=== PATIENT | male | born 1995 | race Hispanic/Latino ===

== ENCOUNTER 2022-06-16 06:14 | Emergency (ER) | payer SELFPAY ==
[2022-06-16] MEDS ORDERED: Lorazepam 2 MG/ML VIAL ONE (06:41)
[2022-06-16 06:51] LABS: #Basophils 0.1 thou/uL (0.0-0.2); #Eosinphils 0.2 thou/uL (0.0-0.7); #Lymphocytes 2.7 thou/uL (1.20-3.40); #Monocytes 0.8 thou/uL (0.11-0.59); %Basophils 0.4 % (0.0-1.0); %Eosinophils 1.3 % (0.0-10.0); %Lymphocytes 18.4 % (21.0-51.0); %Monocytes 5.5 % (0.0-10.0); %Neutrophils 74.4 % (42.0-75.0); Hemoglobin 14.9 g/dL (14.0-18.0); Mean Corpuscular HGB CONC 32.7 g/dL (32.0-36.0); Mean Corpuscular Hemoglobin 29.5 pg (27.0-31.0); Mean Corpuscular Volume 90.2 fl (78.0-98.0); Platelet Count 249 thou/uL (130-400); RBC Distribution Width 13.9 % (11.5-14.5); Red Blood Cell (RBC) Count 5.06 mill/uL (4.70-6.10); White Blood Cell (WBC) Count 14.7 thou/uL (4.8-10.8)
[2022-06-16 07:04] LABS: ALT (SGPT) 58 U/L (8-55); AST (SGOT) 31 U/L (5-34); Albumin 4.5 g/dL (3.5-5.0); Alkaline Phosphatase 129 U/L (40-110); Anion Gap 14 mmol/L (10-20); BUN (Urea Nitrogen) 11 mg/dL (8.9-20.6); Bilirubin, Total 1.3 mg/dL (0.2-1.2); CK (CPK) 718 U/L (30-200); Calc. Creatinine Clearance 0 mL/min (70-130); Calcium 9.2 mg/dL (7.8-10.44); Carbon Dioxide 24 mmol/L (22-29); Chloride 103 mmol/L (98-107); Estimated GFR 106; Globulin 2.7 g/dL (2.4-3.5); Glucose 128 mg/dL (70-105); Potassium 3.2 mmol/L (3.5-5.1); Protein, Total 7.2 g/dL (6.0-8.3); Sodium 138 mmol/L (136-145)
[2022-06-16 07:10] LABS: Acetaminophen Less than 10.0 mcg/mL (10.0-30.0); Alcohol Less than 10 mg/dL (Less than 10); Salicylate Less than 8.0 mg/dL (15.0-30.0)
[2022-06-16] MEDS ORDERED: Potassium Chloride 20 MEQ TAB ONE (07:44)
== END 2022-06-16 10:00 | disposition left against medical advice (07) ==
LOC: ERS 06:14
DX: R51.9 Headache, unspecified (principal); E87.6 Hypokalemia; F14.90 Cocaine use, unspecified, uncomplicated
CPT/HCPCS: 36415; 70450; 70496; 80053; 80307; 82550; 85025; 93005; 96374; J2060

== ENCOUNTER 2022-12-11 03:15 | Emergency (ER) | payer SELFPAY ==
[2022-12-11 03:40] LABS: #Basophils 0.1 thou/uL (0.0-0.2); #Eosinphils 0.1 thou/uL (0.0-0.7); #Lymphocytes 1.8 thou/uL (1.20-3.40); #Monocytes 0.7 thou/uL (0.11-0.59); #Neutrophils 14.1 thou/uL (1.40-6.50); %Basophils 0.5 % (0.0-1.0); %Eosinophils 0.3 % (0.0-10.0); %Lymphocytes 10.6 % (21.0-51.0); %Monocytes 4.2 % (0.0-10.0); %Neutrophils 84.4 % (42.0-75.0); Hemoglobin 14.5 g/dL (14.0-18.0); Mean Corpuscular HGB CONC 32.6 g/dL (32.0-36.0); Mean Corpuscular Hemoglobin 29.9 pg (27.0-31.0); Mean Corpuscular Volume 91.7 fl (78.0-98.0); Mean Platelet Volume 10.2 fL (7.4-10.4); Platelet Count 288 10x3/uL (130-400); RBC Distribution Width 13.4 % (11.5-14.5); Red Blood Cell (RBC) Count 4.86 mill/uL (4.70-6.10); White Blood Cell (WBC) Count 16.7 10x3/uL (4.8-10.8)
[2022-12-11] MEDS ORDERED: LORazepam 2 MG/ML SYR.(CARPUJECT) ONE (03:40)
[2022-12-11 04:02] LABS: Acetaminophen Less than 10.0 mcg/mL (10.0-30.0); Alcohol Less than 10 mg/dL (Less than 10); Salicylate Less than 8.0 mg/dL (15.0-30.0)
[2022-12-11 04:04] LABS: ALT (SGPT) 71 U/L (8-55); AST (SGOT) 36 U/L (5-34); Albumin 4.7 g/dL (3.5-5.0); Alkaline Phosphatase 156 U/L (40-110); Anion Gap 19 mmol/L (10-20); BUN (Urea Nitrogen) 13 mg/dL (8.9-20.6); Bilirubin, Total 0.4 mg/dL (0.2-1.2); Calc. Creatinine Clearance 0 mL/min (70-130); Calcium 9.2 mg/dL (7.8-10.44); Carbon Dioxide 18 mmol/L (22-29); Chloride 104 mmol/L (98-107); Estimated GFR 92; Globulin 2.7 g/dL (2.4-3.5); Glucose 153 mg/dL (70-105); Potassium 3.9 mmol/L (3.5-5.1); Protein, Total 7.4 g/dL (6.0-8.3); Sodium 137 mmol/L (136-145)
== END 2022-12-11 04:16 | disposition home or self-care (01) ==
LOC: ERS 03:15
DX: F14.20 Cocaine dependence, uncomplicated (principal); R00.0 Tachycardia, unspecified
CPT/HCPCS: 71045; 80053; 80307; 83880; 84484; 85025; 93005; 96374; J2060

== ENCOUNTER 2023-03-22 01:11 | Inpatient (IN) | payer SELFPAY ==
[2023-03-22 01:50] LABS: Hematocrit 51.1 % (42.0-52.0); Hemoglobin 17.1 g/dL (14.0-18.0); Mean Corpuscular HGB CONC 33.5 g/dL (32.0-36.0); Mean Corpuscular Hemoglobin 29.9 pg (27.0-31.0); Mean Corpuscular Volume 89.3 fl (78.0-98.0); Platelet Count 375 10x3/uL (130-400); RBC Distribution Width 13.6 % (11.5-14.5); Red Blood Cell (RBC) Count 5.72 mill/uL (4.70-6.10); White Blood Cell (WBC) Count 32.7 10x3/uL (4.8-10.8)
[2023-03-22 01:52] LABS: Delete Auto Diff?? YES; Manual Diff?? YES
[2023-03-22 02:06] LABS: Acetaminophen Less than 10 mcg/mL (10.0-30.0); Alcohol 11.3 mg/dL (Less than 10); Salicylate Less than 8.0 mg/dL (15.0-30.0)
[2023-03-22 02:07] LABS: ALT (SGPT) 40 U/L (8-55); AST (SGOT) 58 U/L (5-34); Albumin 5.2 g/dL (3.5-5.0); Alkaline Phosphatase 168 U/L (40-110); Anion Gap 26 mmol/L (10-20); BUN (Urea Nitrogen) 11 mg/dL (8.9-20.6); Bilirubin, Total 0.9 mg/dL (0.2-1.2); Calc. Creatinine Clearance 0 mL/min (70-130); Calcium 10.5 mg/dL (7.8-10.44); Carbon Dioxide 12 mmol/L (22-29); Chloride 108 mmol/L (98-107); Estimated GFR 45; Globulin 3.3 g/dL (2.4-3.5); Glucose 117 mg/dL (70-105); Potassium 3.5 mmol/L (3.5-5.1); Protein, Total 8.5 g/dL (6.0-8.3); Sodium 142 mmol/L (136-145)
[2023-03-22 02:15] LABS: Anisocytosis SLIGHT = 6-15 cells HPF (0-5); Band 22 % (5-11); CellaVision Operator ID LAB.CLH1; Eosinophils 1 % (0-10); Large Platelets 2.9 % (0-5); Lymphocytes 3 % (21-51); Monocytes 5 % (0-10); Neutrophil 66 % (42-75); Platelet Adequacy Comment Platelets Normal; Reactive Lymphocytes 3 % (0-10); Total Cell Count 103
[2023-03-22 02:17] LABS: Bacteria/HPF None Seen HPF (None Seen); Bilirubin Negative (Negative); Blood, Urine 3+ (Negative); CAUTI Indications for Culture Alt mental st,lethar; Clarity Turbid (Clear); Glucose, Urine (Dipstick) Normal (Negative); Ketone, Urine 10 mg/dL (Negative); Leukocyte Negative Leu/uL (Negative); Mucous/LPF Rare LPF (<2+); Nitrite Negative (Negative); Protein, Urine (Dipstick) 100 mg/dL (Neg-Trace); RBC/HPF 0-3 HPF (0-3); Specific Gravity, Urine 1.012 (1.002-1.036); Squamous Epithelial 0-3 HPF (0-3); Urobilinogen Normal mg/dL (Less than 2); WBC/HPF 0-3 HPF (0-3); pH, Urine 5.5 (5.0-9.0)
[2023-03-22 02:18] LABS: Sperm/HPF Rare HPF (None Seen); Urine Culture Reflex No No
[2023-03-22 02:20] LABS: Amphetamine Not Detected (NotDetected); Barbiturates Screen Not Detected (NotDetected); Benzodiazepine Screen Not Detected (NotDetected); Cocaine Metabolite Screen Detected (NotDetected); Methadone Not Detected (NotDetected); Methamphetamine Not Detected (NotDetected); Opiate Screen Not Detected (NotDetected); Oxycodone Screen Not Detected (NotDetected); Phencyclidine (PCP) Not Detected (NotDetected); THC/Cannabinoid Screen Detected (NotDetected); Tricyclic Screen Not Detected (NotDetected)
[2023-03-22 02:21] LABS: Actual Bicarbonate (HCO3v) 15.5 mEq/L (22-28); Base Excess -8.8 mEq/L (-2.0 to +3.0); Calcium, Ionized (venous) 1.13 mmol/L (1.16-1.32); Chloride (VBG) 108 mmol/L (98-106); Hematocrit-VBG 50 % (42.0-52.0); Potassium (VBG) 3.42 mmol/L (3.70-5.30); Sodium 139.4 mmol/L (133-146); pH (venous) 7.328 (7.32-7.43)
[2023-03-22] MEDS ORDERED: Ondansetron PF 4 MG/2 ML Vial ONE (02:51)
[2023-03-22] MEDS ORDERED: Aspirin 300 MG Suppository ONE (03:08)
[2023-03-22] MEDS ORDERED: Calcium Carbonate 500 MG ChewTAB PO PRN (03:22)
[2023-03-22] MEDS ORDERED: Ondansetron ODT 4 MG TAB PO PRN (03:22)
[2023-03-22] MEDS ORDERED: Acetaminophen 650 MG Suppository PR PRN (03:22)
[2023-03-22 03:31] LABS: ALT (SGPT) 33 U/L (8-55); AST (SGOT) 55 U/L (5-34); Acetaminophen Less than 10 mcg/mL (10.0-30.0); Albumin 4.4 g/dL (3.5-5.0); Alcohol Less than 10.0 mg/dL (Less than 10); Alkaline Phosphatase 140 U/L (40-110); Anion Gap 20 mmol/L (10-20); BUN (Urea Nitrogen) 12 mg/dL (8.9-20.6); Bilirubin, Total 0.8 mg/dL (0.2-1.2); Calc. Creatinine Clearance 0 mL/min (70-130); Carbon Dioxide 15 mmol/L (22-29); Chloride 110 mmol/L (98-107); Estimated GFR 52; Globulin 2.8 g/dL (2.4-3.5); Glucose 100 mg/dL (70-105); Potassium 3.5 mmol/L (3.5-5.1); Protein, Total 7.2 g/dL (6.0-8.3); Salicylate Less than 8.0 mg/dL (15.0-30.0); Sodium 141 mmol/L (136-145)
[2023-03-22 03:35] LABS: CKMB 4.4 ng/mL (0-6.6)
[2023-03-22 03:42] LABS: Hemoglobin A1c 5.1 % (4.0-6.0)
[2023-03-22 05:06] LABS: Troponin I 0.199 ng/mL (< 0.028)
[2023-03-22 05:20] VITALS: BMI 36.3
[2023-03-22] MEDS: Lactated Ringer's 1,000 ML IV SCH ×5 (05:50→22:33)
[2023-03-22 06:49] LABS: Lactic Acid 1.6 mmol/L (0.5-2.2)
[2023-03-22 07:16] LABS: Troponin I 0.214 ng/mL (< 0.028)
[2023-03-22] MEDS: Famotidine/PF 20 mg/2ml Vial SLOW IVP SCH ×2 (08:14→22:30)
[2023-03-22] MEDS: Ondansetron PF 4 MG/2 ML Vial IVP PRN ×2 (08:14→14:17)
[2023-03-22] MEDS: Famotidine 20 MG TAB PO SCH ×2 (09:30→22:29)
[2023-03-22] MEDS: Acetaminophen 325 MG TAB PO PRN ×2 (09:30→14:17)
[2023-03-22] MEDS ORDERED: Iopamidol-370 76% 500 ML MDV (1 ML CHARGE) ONE ×2 (10:45→10:50)
[2023-03-22] MEDS ORDERED: Sertraline 100 MG TAB PO SCH (13:53)
[2023-03-22] MEDS ORDERED: Thiamine HCl 200 MG/2 ML VIAL SLOW IVP SCH (14:00)
[2023-03-22] MEDS ORDERED: Sodium Chloride 0.9% 500 ML IVPB SCH (16:15)
[2023-03-22 20:55] LABS: Bilirubin Negative (Negative); Blood, Urine 2+ (Negative); CAUTI Indications for Culture Pelvic or flank pain; Clarity Clear (Clear); Glucose, Urine (Dipstick) Normal (Negative); Ketone, Urine Trace mg/dL (Negative); Leukocyte Negative Leu/uL (Negative); Nitrite Negative (Negative); Protein, Urine (Dipstick) Negative (Neg-Trace); Squamous Epithelial None Seen HPF (0-3); Urobilinogen Normal mg/dL (Less than 2); WBC/HPF 0-3 HPF (0-3); pH, Urine 5.5 (5.0-9.0)
[2023-03-22 21:02] LABS: Bacteria/HPF None Seen HPF (None Seen)
[2023-03-22 21:03] LABS: Urine Culture Reflex No No
[2023-03-23 04:48] LABS: #Basophils 0.1 thou/uL (0.0-0.2); #Eosinphils 0.1 thou/uL (0.0-0.7); #Monocytes 0.9 thou/uL (0.11-0.59); #Neutrophils 13.6 thou/uL (1.40-6.50); %Basophils 0.3 % (0.0-1.0); %Eosinophils 0.6 % (0.0-10.0); %Lymphocytes 7.3 % (21.0-51.0); %Monocytes 5.7 % (0.0-10.0); %Neutrophils 85.5 % (42.0-75.0); Mean Corpuscular Hemoglobin 30.2 pg (27.0-31.0); Mean Corpuscular Volume 91.4 fl (78.0-98.0); Mean Platelet Volume 12.5 fL (7.4-10.4); Platelet Count 190 10x3/uL (130-400); RBC Distribution Width 14.1 % (11.5-14.5); Red Blood Cell (RBC) Count 4.44 mill/uL (4.70-6.10); White Blood Cell (WBC) Count 15.9 10x3/uL (4.8-10.8)
[2023-03-23 05:14] LABS: Hematocrit 40.6 % (42.0-52.0); Hemoglobin 13.4 g/dL (14.0-18.0)
[2023-03-23 05:18] LABS: Anion Gap 17 mmol/L (10-20); BUN (Urea Nitrogen) 19 mg/dL (8.9-20.6); Calc. Creatinine Clearance 50 mL/min (70-130); Carbon Dioxide 18 mmol/L (22-29); Chloride 105 mmol/L (98-107); Estimated GFR 23; Glucose 99 mg/dL (70-105); Sodium 136 mmol/L (136-145)
[2023-03-23 05:23] LABS: CK (CPK) 7650 U/L (30-200)
[2023-03-23] MEDS: Sertraline 100 MG TAB PO SCH (09:11)
[2023-03-23] MEDS: Famotidine/PF 20 mg/2ml Vial SLOW IVP SCH (09:12)
[2023-03-23] MEDS: Thiamine HCl 200 MG/2 ML VIAL SLOW IVP SCH (09:12)
[2023-03-23] MEDS: Famotidine 20 MG TAB PO SCH (09:12)
[2023-03-23] MEDS ORDERED: Bacitracin 1 PK TOP SCH (10:40)
[2023-03-23] MEDS ORDERED: HYDROcodone/Acetaminophen 5/325 mg Tablet PO SCH (10:45)
[2023-03-23] MEDS: Lactated Ringer's 1,000 ML IV SCH ×4 (11:12→22:48)
[2023-03-23] MEDS: Bacitracin 1 PK TOP SCH ×2 (15:23→21:01)
[2023-03-23] MEDS: Sodium Bicarbonate Tab 325 MG TAB PO SCH (21:00)
[2023-03-23 21:46] LABS: Chloride 106 mmol/L (98-107); Potassium 3.7 mmol/L (3.5-5.1); Sodium 136 mmol/L (136-145)
[2023-03-23 21:47] LABS: Glucose 122 mg/dL (70-105)
[2023-03-23 21:49] LABS: Anion Gap 10 mmol/L (10-20); Carbon Dioxide 24 mmol/L (22-29)
[2023-03-23 21:51] LABS: Calc. Creatinine Clearance 54 mL/min (70-130); Estimated GFR 25
[2023-03-23 21:52] LABS: BUN (Urea Nitrogen) 18 mg/dL (8.9-20.6)
[2023-03-24] MEDS: Lactated Ringer's 1,000 ML IV SCH ×4 (02:36→16:18)
[2023-03-24 04:39] LABS: #Basophils 0.1 thou/uL (0.0-0.2); #Eosinphils 0.5 thou/uL (0.0-0.7); #Monocytes 0.8 thou/uL (0.11-0.59); #Neutrophils 10.8 thou/uL (1.40-6.50); %Basophils 0.4 % (0.0-1.0); %Eosinophils 3.5 % (0.0-10.0); %Lymphocytes 8.9 % (21.0-51.0); %Neutrophils 80.7 % (42.0-75.0); Hematocrit 40.5 % (42.0-52.0); Hemoglobin 13.1 g/dL (14.0-18.0); Mean Corpuscular HGB CONC 32.3 g/dL (32.0-36.0); Mean Corpuscular Hemoglobin 29.4 pg (27.0-31.0); Mean Platelet Volume 12.1 fL (7.4-10.4); Platelet Count 210 10x3/uL (130-400); RBC Distribution Width 14.2 % (11.5-14.5); Red Blood Cell (RBC) Count 4.45 mill/uL (4.70-6.10); White Blood Cell (WBC) Count 13.3 10x3/uL (4.8-10.8)
[2023-03-24 05:00] LABS: Anion Gap 13 mmol/L (10-20); BUN (Urea Nitrogen) 16 mg/dL (8.9-20.6); Calc. Creatinine Clearance 57 mL/min (70-130); Calcium 8.2 mg/dL (7.8-10.44); Carbon Dioxide 23 mmol/L (22-29); Chloride 107 mmol/L (98-107); Estimated GFR 27; Glucose 97 mg/dL (70-105); Potassium 4.1 mmol/L (3.5-5.1); Sodium 139 mmol/L (136-145)
[2023-03-24 05:22] LABS: CK (CPK) 4333 U/L (30-200)
[2023-03-24] MEDS ORDERED: Piperacillin/Tazobactam 3.375 GM in Sodium Chloride 0.9% 100 ML IVPB SCH ×2 (09:45→10:00)
[2023-03-24] MEDS: Sertraline 100 MG TAB PO SCH (10:01)
[2023-03-24] MEDS: Thiamine HCl 200 MG/2 ML VIAL SLOW IVP SCH (10:01)
[2023-03-24] MEDS: Sodium Bicarbonate Tab 325 MG TAB PO SCH ×3 (10:01→20:19)
[2023-03-24] MEDS: Famotidine 20 MG TAB PO SCH (10:01)
[2023-03-24] MEDS: Famotidine/PF 20 mg/2ml Vial SLOW IVP SCH (10:02)
[2023-03-24] MEDS: Bacitracin Zinc Ointment 30 gm TUBE TOP SCH ×3 (10:02→20:20)
[2023-03-24] MEDS: Bacitracin 1 PK TOP SCH (10:09)
[2023-03-24] MEDS: Sodium Chloride 0.9% 1,000 ML IV SCH ×2 (17:00→21:48)
[2023-03-24] MEDS: Piperacillin/Tazobactam 3.375 GM in Sodium Chloride 0.9% 100 ML IVPB SCH ×2 (17:00→21:48)
[2023-03-25] MEDS: Sodium Chloride 0.9% 1,000 ML IV SCH ×3 (01:46→09:26)
[2023-03-25 04:15] LABS: #Eosinphils 0.6 thou/uL (0.0-0.7); #Monocytes 0.6 thou/uL (0.11-0.59); #Neutrophils 6.9 thou/uL (1.40-6.50); %Basophils 0.2 % (0.0-1.0); %Lymphocytes 12.9 % (21.0-51.0); %Neutrophils 74.6 % (42.0-75.0); Hematocrit 42.6 % (42.0-52.0); Hemoglobin 13.6 g/dL (14.0-18.0); Mean Corpuscular HGB CONC 31.9 g/dL (32.0-36.0); Mean Corpuscular Hemoglobin 29.5 pg (27.0-31.0); Mean Corpuscular Volume 92.4 fl (78.0-98.0); Mean Platelet Volume 12.2 fL (7.4-10.4); Platelet Count 217 10x3/uL (130-400); RBC Distribution Width 14.4 % (11.5-14.5); Red Blood Cell (RBC) Count 4.61 mill/uL (4.70-6.10); White Blood Cell (WBC) Count 9.3 10x3/uL (4.8-10.8)
[2023-03-25 04:38] LABS: Anion Gap 13 mmol/L (10-20); BUN (Urea Nitrogen) 14 mg/dL (8.9-20.6); Calc. Creatinine Clearance 65 mL/min (70-130); Calcium 8.2 mg/dL (7.8-10.44); Carbon Dioxide 23 mmol/L (22-29); Chloride 112 mmol/L (98-107); Estimated GFR 31; Glucose 98 mg/dL (70-105); Potassium 3.8 mmol/L (3.5-5.1); Sodium 144 mmol/L (136-145)
[2023-03-25 04:50] LABS: CK (CPK) 6556 U/L (30-200)
[2023-03-25] MEDS: Piperacillin/Tazobactam 3.375 GM in Sodium Chloride 0.9% 100 ML IVPB SCH ×3 (05:43→21:12)
[2023-03-25] MEDS: Famotidine 20 MG TAB PO SCH ×2 (09:26→21:12)
[2023-03-25] MEDS: Sodium Bicarbonate Tab 325 MG TAB PO SCH ×3 (09:26→21:12)
[2023-03-25] MEDS: Thiamine HCl 200 MG/2 ML VIAL SLOW IVP SCH (09:26)
[2023-03-25] MEDS: Sertraline 100 MG TAB PO SCH (09:26)
[2023-03-25] MEDS: Bacitracin Zinc Ointment 30 gm TUBE TOP SCH ×3 (09:27→21:13)
[2023-03-25] MEDS: Famotidine/PF 20 mg/2ml Vial SLOW IVP SCH (09:27)
[2023-03-25] MEDS ORDERED: Lactated Ringer's 1,000 ML IV SCH (13:00)
[2023-03-25] MEDS: Lactated Ringer's 1,000 ML IV SCH ×3 (14:33→21:13)
[2023-03-25] MEDS ORDERED: Famotidine/PF 20 mg/2ml Vial SLOW IVP SCH (21:00)
[2023-03-25] MEDS: Acetaminophen 325 MG TAB PO PRN (21:37)
[2023-03-26] MEDS: Lactated Ringer's 1,000 ML IV SCH ×8 (00:48→23:06)
[2023-03-26 05:42] LABS: #Eosinphils 0.6 thou/uL (0.0-0.7); #Monocytes 0.6 thou/uL (0.11-0.59); #Neutrophils 6.5 thou/uL (1.40-6.50); %Basophils 0.2 % (0.0-1.0); %Eosinophils 6.7 % (0.0-10.0); %Lymphocytes 15.7 % (21.0-51.0); %Monocytes 6.5 % (0.0-10.0); %Neutrophils 70.5 % (42.0-75.0); Hematocrit 39.1 % (42.0-52.0); Hemoglobin 12.4 g/dL (14.0-18.0); Mean Corpuscular HGB CONC 31.7 g/dL (32.0-36.0); Mean Corpuscular Hemoglobin 29.9 pg (27.0-31.0); Mean Corpuscular Volume 94.2 fl (78.0-98.0); Mean Platelet Volume 12.5 fL (7.4-10.4); Platelet Count 218 10x3/uL (130-400); RBC Distribution Width 14.6 % (11.5-14.5); Red Blood Cell (RBC) Count 4.15 mill/uL (4.70-6.10); White Blood Cell (WBC) Count 9.2 10x3/uL (4.8-10.8)
[2023-03-26] MEDS: Piperacillin/Tazobactam 3.375 GM in Sodium Chloride 0.9% 100 ML IVPB SCH ×3 (06:06→23:06)
[2023-03-26 06:14] LABS: Anion Gap 12 mmol/L (10-20); BUN (Urea Nitrogen) 12 mg/dL (8.9-20.6); Calc. Creatinine Clearance 91 mL/min (70-130); Calcium 8.7 mg/dL (7.8-10.44); Carbon Dioxide 21 mmol/L (22-29); Chloride 112 mmol/L (98-107); Estimated GFR 47; Glucose 90 mg/dL (70-105); Potassium 4.1 mmol/L (3.5-5.1); Sodium 141 mmol/L (136-145)
[2023-03-26 06:26] LABS: CK (CPK) 5090 U/L (30-200)
[2023-03-26] MEDS: Sertraline 100 MG TAB PO SCH (08:54)
[2023-03-26] MEDS: Thiamine HCl 200 MG/2 ML VIAL SLOW IVP SCH (08:55)
[2023-03-26] MEDS: Famotidine 20 MG TAB PO SCH ×2 (08:55→21:27)
[2023-03-26] MEDS: Sodium Bicarbonate Tab 325 MG TAB PO SCH ×3 (08:55→21:27)
[2023-03-26] MEDS: Bacitracin Zinc Ointment 30 gm TUBE TOP SCH ×3 (08:57→21:28)
[2023-03-26] MEDS: Ondansetron PF 4 MG/2 ML Vial IVP PRN (21:26)
[2023-03-26] MEDS: Acetaminophen 325 MG TAB PO PRN (21:27)
[2023-03-27] MEDS: Acetaminophen 325 MG TAB PO PRN ×2 (03:22→20:08)
[2023-03-27] MEDS: Piperacillin/Tazobactam 3.375 GM in Sodium Chloride 0.9% 100 ML IVPB SCH ×2 (05:10→15:35)
[2023-03-27] MEDS: Lactated Ringer's 1,000 ML IV SCH ×3 (05:14→10:18)
[2023-03-27 05:18] LABS: #Eosinphils 0.7 thou/uL (0.0-0.7); #Monocytes 0.8 thou/uL (0.11-0.59); #Neutrophils 8.4 thou/uL (1.40-6.50); %Basophils 0.4 % (0.0-1.0); %Eosinophils 5.8 % (0.0-10.0); %Lymphocytes 11.1 % (21.0-51.0); %Monocytes 7.2 % (0.0-10.0); %Neutrophils 75.1 % (42.0-75.0); Hematocrit 37.8 % (42.0-52.0); Hemoglobin 12.1 g/dL (14.0-18.0); Mean Corpuscular Hemoglobin 29.9 pg (27.0-31.0); Mean Corpuscular Volume 93.3 fl (78.0-98.0); Mean Platelet Volume 12.5 fL (7.4-10.4); Platelet Count 214 10x3/uL (130-400); RBC Distribution Width 14.5 % (11.5-14.5); Red Blood Cell (RBC) Count 4.05 mill/uL (4.70-6.10); White Blood Cell (WBC) Count 11.2 10x3/uL (4.8-10.8)
[2023-03-27 05:44] LABS: Anion Gap 11 mmol/L (10-20); BUN (Urea Nitrogen) 10 mg/dL (8.9-20.6); Calc. Creatinine Clearance 104 mL/min (70-130); Calcium 8.4 mg/dL (7.8-10.44); Carbon Dioxide 24 mmol/L (22-29); Chloride 110 mmol/L (98-107); Estimated GFR 55; Glucose 93 mg/dL (70-105); Potassium 3.8 mmol/L (3.5-5.1); Sodium 141 mmol/L (136-145)
[2023-03-27] MEDS ORDERED: cloNIDine 0.1 MG TAB PO PRN (09:00)
[2023-03-27] MEDS ORDERED: Electrolyte Replacement Protocol 1 EACH FS SCH (09:00)
[2023-03-27 09:25] LABS: Magnesium 1.5 mg/dL (1.6-2.6)
[2023-03-27] MEDS: Sodium Bicarbonate Tab 325 MG TAB PO SCH ×3 (09:38→20:08)
[2023-03-27] MEDS: Sertraline 100 MG TAB PO SCH (09:39)
[2023-03-27] MEDS: Famotidine 20 MG TAB PO SCH ×2 (09:40→20:09)
[2023-03-27] MEDS: Thiamine HCl 200 MG/2 ML VIAL SLOW IVP SCH (09:41)
[2023-03-27] MEDS: Bacitracin Zinc Ointment 30 gm TUBE TOP SCH ×3 (09:42→20:12)
[2023-03-27] MEDS ORDERED: Magnesium 2 GM/50 ML(in water) 2 GM in Premix Bag 1 BAG IVPB SCH (10:00)
[2023-03-27] MEDS: Amoxicillin/Potassium Clav 875 MG TAB PO SCH (20:08)
[2023-03-28 05:17] LABS: Anion Gap 15 mmol/L (10-20); BUN (Urea Nitrogen) 10 mg/dL (8.9-20.6); CK (CPK) 1001 U/L (30-200); Calc. Creatinine Clearance 101 mL/min (70-130); Calcium 8.8 mg/dL (7.8-10.44); Carbon Dioxide 23 mmol/L (22-29); Chloride 110 mmol/L (98-107); Estimated GFR 53; Glucose 87 mg/dL (70-105); Magnesium 1.9 mg/dL (1.6-2.6); Potassium 3.8 mmol/L (3.5-5.1); Sodium 144 mmol/L (136-145)
[2023-03-28] MEDS ORDERED: Magnesium 2 GM/50 ML(in water) 2 GM in Premix Bag 1 BAG IVPB SCH (08:00)
[2023-03-28] MEDS: Sodium Bicarbonate Tab 325 MG TAB PO SCH ×3 (08:19→20:30)
[2023-03-28] MEDS: Famotidine 20 MG TAB PO SCH ×2 (08:20→20:30)
[2023-03-28] MEDS: Sertraline 100 MG TAB PO SCH (08:20)
[2023-03-28] MEDS: Amoxicillin/Potassium Clav 875 MG TAB PO SCH ×2 (08:20→20:30)
[2023-03-28] MEDS: Amlodipine 5 MG TAB PO SCH (08:20)
[2023-03-28] MEDS: Bacitracin Zinc Ointment 30 gm TUBE TOP SCH ×3 (08:21→20:30)
[2023-03-28] MEDS: Magnesium Oxide 400 MG TAB PO SCH ×2 (10:24→20:30)
[2023-03-28] MEDS: Thiamine 100 MG TAB PO SCH (10:24)
[2023-03-29 05:12] LABS: Anion Gap 13 mmol/L (10-20); BUN (Urea Nitrogen) 18 mg/dL (8.9-20.6); CK (CPK) 404 U/L (30-200); Calc. Creatinine Clearance 98 mL/min (70-130); Carbon Dioxide 25 mmol/L (22-29); Chloride 107 mmol/L (98-107); Estimated GFR 51; Glucose 105 mg/dL (70-105); Potassium 3.4 mmol/L (3.5-5.1); Sodium 142 mmol/L (136-145)
[2023-03-29] MEDS ORDERED: Lactated Ringer's 1,000 ML IV SCH (07:00)
[2023-03-29 07:32] VITALS: BP 121/73; TEMP 98.8
[2023-03-29] MEDS ORDERED: Potassium Chloride 20 MEQ TAB PO SCH (08:00)
[2023-03-29] MEDS: Amoxicillin/Potassium Clav 875 MG TAB PO SCH (09:20)
[2023-03-29] MEDS: Sodium Bicarbonate Tab 325 MG TAB PO SCH (09:20)
[2023-03-29] MEDS: Amlodipine 5 MG TAB PO SCH (09:21)
[2023-03-29] MEDS: Sertraline 100 MG TAB PO SCH (09:21)
[2023-03-29] MEDS: Bacitracin Zinc Ointment 30 gm TUBE TOP SCH (09:22)
[2023-03-29] MEDS: Magnesium Oxide 400 MG TAB PO SCH (09:23)
[2023-03-29] MEDS: Thiamine 100 MG TAB PO SCH (09:24)
[2023-03-29] MEDS: Famotidine 20 MG TAB PO SCH (09:29)
== END 2023-03-29 10:50 | disposition home or self-care (01) | DRG 91 ==
LOC: ERS 01:11 → EEVIPCON 01:11 → 2NO 03:29
PROVIDERS: ADMIT Student in an Organized Health Care Education/Training Program; ATTEND Internal Medicine
DX: G92.8 Other toxic encephalopathy (principal); A41.9 Sepsis, unspecified organism; I21.A1 Myocardial infarction type 2; J69.0 Pneumonitis due to inhalation of food and vomit; J18.9 Pneumonia, unspecified organism; I62.00 Nontraumatic subdural hemorrhage, unspecified; N17.9 Acute kidney failure, unspecified; M62.82 Rhabdomyolysis; R45.851 Suicidal ideations; E87.21 Acute metabolic acidosis; N12 Tubulo-interstitial nephritis, not specified as acute or chronic; E86.0 Dehydration; F19.10 Other psychoactive substance abuse, uncomplicated; D72.829 Elevated white blood cell count, unspecified; F32.A Depression, unspecified; E86.9 Volume depletion, unspecified; G93.9 Disorder of brain, unspecified; E87.6 Hypokalemia; D64.9 Anemia, unspecified; E83.42 Hypomagnesemia; E66.9 Obesity, unspecified; Z90.49 Acquired absence of other specified parts of digestive tract; Z68.36 Body mass index [BMI] 36.0-36.9, adult
CPT/HCPCS: 36415; 70450; 70496; 70498; 71045; 74177; 80048; 80053; 80306; 80307; 81001; 82010; 82550; 82553; 82693; 82805; 83036; 83605; 83735; 83930; 84100; 84484; 85025; 87040; 93005; 93010; 93306; 96361; 96374; 97139; J2405; J2543; J3411; J3475; J3490; J7030; J7050; J7120; Q9967; S0028

== ENCOUNTER 2023-04-03 11:33 | Emergency (ER) | payer SELFPAY ==
[2023-04-03] MEDS ORDERED: Metoclopramide HCl 10 MG/2 ML VIAL ONE (11:58)
[2023-04-03] MEDS ORDERED: Acetaminophen 500 MG TAB ONE (11:58)
[2023-04-03] MEDS ORDERED: diphenhydrAMINE 50 MG/ML VIAL ONE (11:59)
[2023-04-03 12:58] LABS: #Basophils 0.1 thou/uL (0.0-0.2); #Eosinphils 0.7 thou/uL (0.0-0.7); #Monocytes 0.5 thou/uL (0.11-0.59); #Neutrophils 7.8 thou/uL (1.40-6.50); %Basophils 0.6 % (0.0-1.0); %Eosinophils 6.1 % (0.0-10.0); %Lymphocytes 17.2 % (21.0-51.0); %Monocytes 4.5 % (0.0-10.0); %Neutrophils 71.1 % (42.0-75.0); Hematocrit 45.3 % (42.0-52.0); Hemoglobin 14.4 g/dL (14.0-18.0); Mean Corpuscular HGB CONC 31.8 g/dL (32.0-36.0); Mean Corpuscular Hemoglobin 29.6 pg (27.0-31.0); Mean Corpuscular Volume 93.2 fl (78.0-98.0); Mean Platelet Volume 12.3 fL (7.4-10.4); Platelet Count 284 10x3/uL (130-400); RBC Distribution Width 14.4 % (11.5-14.5); Red Blood Cell (RBC) Count 4.86 mill/uL (4.70-6.10)
[2023-04-03 13:25] LABS: ALT (SGPT) 36 U/L (8-55); AST (SGOT) 22 U/L (5-34); Albumin 4.3 g/dL (3.5-5.0); Alkaline Phosphatase 126 U/L (40-110); Anion Gap 18 mmol/L (10-20); BUN (Urea Nitrogen) 16 mg/dL (8.9-20.6); Bilirubin, Total 0.5 mg/dL (0.2-1.2); Calc. Creatinine Clearance 0 mL/min (70-130); Calcium 9.2 mg/dL (7.8-10.44); Carbon Dioxide 25 mmol/L (22-29); Chloride 106 mmol/L (98-107); Estimated GFR 66; Globulin 3.2 g/dL (2.4-3.5); Glucose 97 mg/dL (70-105); Potassium 3.9 mmol/L (3.5-5.1); Protein, Total 7.5 g/dL (6.0-8.3); Sodium 145 mmol/L (136-145)
== END 2023-04-03 13:57 | disposition home or self-care (01) ==
LOC: ERS 11:33
DX: R51.9 Headache, unspecified (principal); M54.2 Cervicalgia
CPT/HCPCS: 70450; 71046; 80053; 85025; 93005; 96365; J1200; J2765

== ENCOUNTER 2023-07-29 20:56 | Emergency (ER) | payer SELFPAY ==
[2023-07-29] MEDS ORDERED: LORazepam 2 MG/ML SYR.(CARPUJECT) ONE (21:31)
[2023-07-29 21:36] LABS: Bacteria/HPF None Seen HPF (None Seen); Bilirubin Negative (Negative); Blood, Urine Negative (Negative); CAUTI Indications for Culture Alt mental st,lethar; Clarity Clear (Clear); Glucose, Urine (Dipstick) Normal (Negative); Ketone, Urine Negative (Negative); Leukocyte Negative Leu/uL (Negative); Nitrite Negative (Negative); Protein, Urine (Dipstick) Negative (Neg-Trace); RBC/HPF None Seen HPF (0-3); Squamous Epithelial None Seen HPF (0-3); Urobilinogen Normal mg/dL (Less than 2); WBC/HPF None Seen HPF (0-3); pH, Urine 5.5 (5.0-9.0)
[2023-07-29 21:39] LABS: Amphetamine Not Detected (NotDetected); Barbiturates Screen Not Detected (NotDetected); Benzodiazepine Screen Not Detected (NotDetected); Cocaine Metabolite Screen Detected (NotDetected); Methadone Not Detected (NotDetected); Methamphetamine Not Detected (NotDetected); Opiate Screen Not Detected (NotDetected); Oxycodone Screen Not Detected (NotDetected); Phencyclidine (PCP) Not Detected (NotDetected); THC/Cannabinoid Screen Not Detected (NotDetected); Tricyclic Screen Not Detected (NotDetected)
[2023-07-29 21:41] LABS: Specific Gravity, Urine 1.004 (1.002-1.036); Urine Culture Reflex No No
== END 2023-07-29 22:02 | disposition left against medical advice (07) ==
LOC: ERS 20:56
DX: T40.5X1A Poisoning by cocaine, accidental (unintentional), initial encounter (principal); R06.02 Shortness of breath; I10 Essential (primary) hypertension
CPT/HCPCS: 80306; 81001; 93005; J2060